=== PATIENT | male | born 1945 | race Caucasian/White ===

== ENCOUNTER 2017-03-04 11:36 | Emergency (ER) | payer OTHER ==
[~2017-03-04] VITALS: Ht 185.4 cm; Wt 76.4 kg
[~2017-03-04 11:36] MED LIST: CIPR500T87 PO; DOXA4TAB3 PO; FOLI0.8T2 PO; HYDR5SUS PO; LOVA40TA2 PO; METH2.5T PO; TAMS-11 PO
[2017-03-04] MEDS ORDERED: SODIUM CHLORIDE 0.9% 1,000ML IVBOLUS ONE (12:00)
[2017-03-04] MEDS ORDERED: ONDANSETRON 2MG/ML, 2ML IVPush ONE (12:00)
[2017-03-04] MEDS ORDERED: SODIUM CHLORIDE FLUSH 10ML SYR IVF ONE (12:00)
[2017-03-04 12:18] LABS: HEMATOCRIT 53.1 % (39.2-51.8); WHITE BLOOD COUNT 9.5 x10^3/uL (3.4-10)
[2017-03-04 12:28] LABS: BLOOD UREA NITROGEN 6 mg/dL (7-18)
[2017-03-04 12:29] LABS: ASPARTATE AMINO TRANSFERASE 13 U/L (15-37)
[2017-03-04 19:00] VITALS: BP 128/78
[2017-03-04] MEDS ORDERED: CIPROFLOXACIN 500 MG TABLET ONE (19:37)
[2017-03-04] MEDS ORDERED: metroNIDAZOLE 500 MG TABLET ONE (19:37)
[2017-03-04] MEDS ORDERED: metroNIDAZOLE 500 MG TABLET PO ONE (20:00)
[2017-03-04] MEDS ORDERED: CIPROFLOXACIN 500 MG TABLET PO ONE (20:00)
[2017-03-05] MEDS ORDERED: OMNIPAQUE 350 MG/ML, 100ML BOTTLE ONE (05:50)
== END 2017-03-04 20:04 | disposition home or self-care (01) ==
LOC: ED 14:44
DX: A09 Infectious gastroenteritis and colitis, unspecified (principal); I10 Essential (primary) hypertension; E78.00 Pure hypercholesterolemia, unspecified
CPT/HCPCS: 36415; 74020; 74177; 80053; 81001; 85025; 96360; 99285; J7030; Q9967

== ENCOUNTER → 2018-06-29 | Outpatient (CLI) | payer OTHER | END | disposition home or self-care (01) | LOC: CFH 13:25 | PROVIDERS: ATTEND Internal Medicine | DX: Z12.2 Encounter for screening for malignant neoplasm of respiratory organs (principal); J98.4 Other disorders of lung; F17.210 Nicotine dependence, cigarettes, uncomplicated; I10 Essential (primary) hypertension; N40.0 Benign prostatic hyperplasia without lower urinary tract symptoms; L57.0 Actinic keratosis; L30.9 Dermatitis, unspecified; L40.9 Psoriasis, unspecified; R74.0 Nonspecific elevation of levels of transaminase and lactic acid dehydrogenase [LDH]; L82.1 Other seborrheic keratosis | CPT/HCPCS: G0297 ==